=== PATIENT | female | born 2005 | race Caucasian/White ===

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

== ENCOUNTER 2023-05-09 20:39 | Emergency (ER) | payer OTHER ==
[2023-05-09 20:47] VITALS: BP 100/57; PULSE 69; RESP 18; TEMP 97.8; BMI 25.9
[2023-05-09] MEDS ORDERED: SODIUM CHLORIDE 1,000 ML IV ONE (22:13)
[2023-05-09] MEDS ORDERED: METOCLOPRAMIDE HCL INJECTION 10 MG/2 ML VIAL IVPB ONE (22:13)
[2023-05-09] MEDS ORDERED: KETOROLAC TROMETHAMINE 30 MG/1 ML VIAL IVPUSH ONE (22:14)
[2023-05-09] MEDS ORDERED: KETOROLAC TROMETHAMINE 30 MG/1 ML VIAL ONE (22:17)
[2023-05-09] MEDS ORDERED: METOCLOPRAMIDE HCL INJECTION 10 MG/2 ML VIAL ONE (22:17)
[2023-05-09 22:30] LABS: HEMATOCRIT 37.4 % (32.4-45.2); HEMOGLOBIN 13.1 G/dL (10.7-15.3); MEAN CELL VOLUME 88.3 fl (80-96); PLATELET COUNT 273.5 10^3/uL (134-434); RBC 4.23 10^6/uL (3.60-5.2); RDW 13.5 % (11.6-15.6); WHITE BLOOD COUNT 12.1 10^3/uL (4.0-10.8)
[2023-05-09 22:49] LABS: ALBUMIN 4.3 g/dl (3.4-5.0); BILIRUBIN,TOTAL 0.6 mg/dl (0.2-1); BLOOD UREA NITROGEN 14.2 mg/dl (7-18); CALCIUM 9.6 mg/dl (8.5-10.1); CREATININE 0.8 mg/dl (0.6-1.3); POTASSIUM 3.9 mmol/L (3.5-5.1); SGPT/ALT 13.5 U/L (7-52); TOT PROT 6.7 g/dl (6.4-8.2)
== END 2023-05-09 23:08 | disposition home or self-care (01) ==
LOC: FER 20:39
PROC: 3E0333Z Introduction of Anti-inflammatory into Peripheral Vein, Percutaneous Approach (ICD-10-PCS; principal; 2023-05-09)
PROC: 3E033GC Introduction of Other Therapeutic Substance into Peripheral Vein, Percutaneous Approach (ICD-10-PCS; 2023-05-09)
DX: R51.9 Headache, unspecified (principal); R11.0 Nausea
CPT/HCPCS: 36415; 80053; 85027; 99284-25

== ENCOUNTER 2025-01-01 09:54 | Emergency (ER) | payer OTHER ==
[2025-01-01 10:03] VITALS: BP 103/75; PULSE 87; RESP 16; TEMP 98.4; BMI 25.1
[2025-01-01] MEDS: LACTATED RINGERS SOLUTION 1000 ML INFUS.BAG IV ONE (10:10)
[2025-01-01] MEDS ORDERED: ONDANSETRON 4 MG/2 ML VIAL ONE (10:18)
[2025-01-01] MEDS ORDERED: ACETAMINOPHEN INJECTION 100 ML ONE (10:19)
[2025-01-01] MEDS: ONDANSETRON 4 MG/2 ML VIAL IVPUSH ONE (10:25)
[2025-01-01] MEDS: ACETAMINOPHEN 1000 MG/100 ML BAG IVPB ONE (10:30)
[2025-01-01 10:33] LABS: ABSOLUTE IMMATURE GRANULOCYTES 0.02 x10^3/uL (0.0-0.031); BASOPHILS # 0.03 x10^3/uL (0.01-0.08); EOSINOPHIL % 2.3 % (0.7-5.8); EOSINOPHILS # 0.23 x10^3/uL (0.04-0.36); HEMATOCRIT 38.9 % (34.1-44.9); HEMOGLOBIN 12.9 g/dL (11.2-15.7); MCHC 33.2 g/dl (32.2-35.5); MEAN PLT VOLUME 9.3 fl (9.4-12.3); MONOCYTE # 0.44 x10^3/uL (0.24-0.86); MONOCYTE % 4.4 % (4.7-12.5); PLATELET COUNT 346 x10^3/uL (182-369); RDW 11.7 % (12.1-16.5)
[2025-01-01 10:45] LABS: ALBUMIN 4.2 g/dl (3.4-5.0); BILIRUBIN,TOTAL 0.6 mg/dl (0.2-1); CALCIUM 9.2 mg/dl (8.5-10.1); CREATININE 0.7 mg/dl (0.6-1.3); MAGNESIUM 1.7 mg/dL (1.8-2.4); POTASSIUM 3.6 mmol/L (3.5-5.1); TOT PROT 6.8 g/dl (6.4-8.2)
[2025-01-01 12:59] LABS: EPITHELIAL CELLS 0-5 /hpf
[2025-01-01 14:22] LABS: HCV DIAGNOSTIC IN-HOUSE W/RFLX NON-REACTIVE (NONREACTIVE); HIV INTERPRETATION NEGATIVE (NEGATIVE)
== END 2025-01-01 13:19 | disposition home or self-care (01) ==
LOC: FER 09:54
PROC: 3E033NZ Introduction of Analgesics, Hypnotics, Sedatives into Peripheral Vein, Percutaneous Approach (ICD-10-PCS; principal; 2025-01-01)
PROC: 3E033GC Introduction of Other Therapeutic Substance into Peripheral Vein, Percutaneous Approach (ICD-10-PCS; 2025-01-01)
DX: K52.9 Noninfective gastroenteritis and colitis, unspecified (principal); R10.31 Right lower quadrant pain; R10.32 Left lower quadrant pain; R11.2 Nausea with vomiting, unspecified; R68.83 Chills (without fever); N89.8 Other specified noninflammatory disorders of vagina
CPT/HCPCS: 0241U-QW; 36415; 80053; 81003; 81015; 83735; 84703; 85025; 86803; 87086; 87389; 99284-25; J0131